=== PATIENT | male | born 1985 | race Caucasian/White ===

== ENCOUNTER 2018-08-10 15:14 | Emergency (ER) | payer BC, SELFPAY ==
[2018-08-10 17:18] LABS: Absolute Lymphocytes (CBC) 3.3 K/uL (0.7-4.9); Absolute Monocytes 0.4 K/uL (0.1-1.3); Basophils % 1.1 % (0-1.3); Eosinophils % 0.3 % (0-4.4); Hematocrit 38.7 % (39.6-49.0); Lymphocytes % 57.2 % (15.3-44.8); Monocytes % 7.1 % (3.3-12.3); RBC Red Blood Cell Count 4.71 M/uL (4.33-5.43)
--- NOTE | 2018-08-10 17:20 | RAD REPORT ---
EXAM DESCRIPTION: CT - Head Brain Wo Cont - 08/10/2018 5:10 pm CLINICAL HISTORY: PAIN Headache COMPARISON: No comparisons TECHNIQUE: All CT scans are performed using dose optimization technique as appropriate and may inclu de automated exposure control or mA/KV adjustment according to patient size. FINDINGS: No intracranial hemorrhage, hydrocephalus or extra-axial fluid collection.No areas of brai n edema or evidence of midline shift. The paranasal sinuses and mastoids are clear. The calvarium is intact. IMPRESSION: No acute intracranial abnormality.
[2018-08-10 17:37] LABS: ALT/SGPT 42 U/L (12-78); AST/SGOT 32 U/L (15-37); Albumin 3.5 g/dL (3.4-5.0); Alkaline Phosphatase 74 U/L (45-117); BUN Blood Urea Nitrogen 13 mg/dL (7-18); Bicarbonate 32 mmol/L (21-32); Bilirubin Direct 0.3 mg/dL (0-0.2); Bilirubin Total 1.2 mg/dL (0.2-1.0); Glucose Level 124 mg/dL (74-106); Lipase 160 U/L (73-393); Protein, Total 7.4 g/dL (6.4-8.2); Sodium Level 139 mmol/L (136-145)
--- NOTE | 2018-08-10 17:49 | EDPHYS ---
Physician Documentation [facility] Name: Patricia Watkins Age: 32 yrs Sex: Male : 1985 Arrival Date: 08/10/2018 Time: 15:15 Bed 10 Private MD: Coreen Toro C ED Physician nAeesh Lima HPI: 08/10 17:03 This 32 yrs old Male presents to ER via Ambulatory with complaints of Doctor ma2 Referral. 17:03 The patient reports fever, not measured (subjective). Onset: The symptoms/episode ma2 began/occurred gradually, 3 week(s) ago. Associated signs and symptoms: Pertinent positives: HEADACHE, Pertinent negatives: abdominal pain, arthralgias, chest pain, cough, hemoptysis, nausea, sinus drainage. Severity of symptoms: At their worst the symptoms were mild in the emergency department the symptoms are unchanged. The patient has not experienced similar symptoms in the past. Historical: - Allergies: 15:43 No Known Allergies; hb - Home Meds: 15:43 Ramipril Oral [Active]; hb - PMHx: 15:43 Hypertension; hb - PSHx: 15:43 None; hb - Immunization history:: Adult Immunizations up to date. - Social history:: Smoking status: Patient/guardian denies using tobacco, Patient/guardian denies using alcohol, street drugs, The patient lives with family. - Ebola Screening: : No symptoms or risks identified at this time. - Family history:: not pertinent. ROS: 17:03 Constitutional: Negative for fever, chills, and weight loss, Neck: Negative for injury, ma2 pain, and swelling, Cardiovascular: Negative for chest pain, palpitations, and edema, Respiratory: Negative for shortness of breath, cough, wheezing, and pleuritic chest pain, Abdomen/GI: Negative for abdominal pain, nausea, diarrhea, and constipation. 17:03 Constitutional: Positive for chills, Negative for malaise, poor PO intake. 17:03 Neuro: Positive for headache, Negative for dizziness, gait disturbance, numbness, speech changes, tremor, weakness. 17:03 All other systems are negative. Exam: 17:03 Constitutional: This is a well developed, well nourished patient who is awake, alert, ma2 and in no acute distress. Eyes: Pupils equal round and reactive to light, extra-ocular motions intact. Lids and lashes normal. Conjunctiva and sclera are non-icteric and not injected. Cornea within normal limits. Periorbital areas with no swelling, redness, or edema. ENT: Nares patent. No nasal discharge, no septal abnormalities noted. Tympanic membranes are normal and external auditory canals are clear. Oropharynx with no redness, swelling, or masses, exudates, or evidence of obstruction, uvula midline. Mucous membranes moist. Chest/axilla: Normal chest wall appearance and motion. Nontender with no deformity. No lesions are appreciated. Cardiovascular: Regular rate and rhythm with a normal S1 and S2. No gallops, murmurs, or rubs. Normal PMI, no JVD. No pulse deficits. Respiratory: Lungs have equal breath sounds bilaterally, clear to auscultation and percussion. No rales, rhonchi or wheezes noted. No increased work of breathing, no retractions or nasal flaring. Abdomen/GI: Soft, non-tender, with normal bowel sounds. No distension or tympany. No guarding or rebound. No evidence of tenderness throughout. MS/ Extremity: Pulses equal, no cyanosis. Neurovascular intact. Full, normal range of motion. Neuro: Awake and alert, GCS 15, oriented to person, place, time, and situation. Cranial nerves II-XII grossly intact. Motor strength 5/5 in all extremities. Sensory grossly intact. Cerebellar exam normal. Normal gait. Vital Signs: 15:42 BP 138 / 101; Pulse 90; Resp 18; Temp 98.8; Pulse Ox 100% on R/A; Pain 0/10; hb 16:45 BP 125 / 84; Pulse 88; Resp 18; Pulse Ox 97% on R/A; aj1 18:45 BP 127 / 88; Pulse 82; Resp 18; Pulse Ox 99% ; aj1 19:45 BP 125 / 72; Pulse 88; Resp 18; Pulse Ox 99% on R/A; aj1 20:33 BP 127 / 77; Pulse 89; Resp 18; Pulse Ox 99% on R/A; aj1 MDM: 16:40 Patient medically screened. ma2 17:03 Differential diagnosis: bacterial infection, URI, bronchitis, pneumonia UTI, ma2 gastroenteritis. 17:42 Data reviewed: vital signs, nurses notes. Counseling: I had a detailed discussion with ma2 the patient and/or guardian regarding: the historical points, exam findings, and any diagnostic results supporting the discharge/admit diagnosis, the presence of at least one elevated blood pressure reading (>120/80) during this emergency department visit, lab results, the need for outpatient follow up. 08/10 16:56 Order name: Basic Metabolic Panel; Complete Time: 17:42 [facility] 08/10 16:56 Order name: CBC with Diff [facility] 08/10 16:56 Order name: Creatinine for Radiology; Complete Time: 17:42 [facility] 08/10 16:56 Order name: Hepatic Function; Complete Time: 17:42 [facility] 08/10 16:56 Order name: Lipase; Complete Time: 17:42 [facility] 08/10 16:56 Order name: Blood Culture Adult (2) [facility] 08/10 16:56 Order name: CT Head Brain wo Cont; Complete Time: 17:42 [facility] 08/10 16:56 Order name: IV Saline Lock; Complete Time: 17:13 [facility] 08/10 16:56 Order name: Labs collected and sent; Complete Time: 17:13 [facility] 08/10 17:05 Order name: Chest Single View XRAY; Complete Time: 18:19 [facility] 08/10 17:37 Order name: Manual Differential [facility] 08/10 18:49 Order name: TSH [facility] 08/10 18:49 Order name: Hemoglobin A1c [facility] 08/10 18:49 Order name: XRAY Facial Bones <3 Views: sinuses; Complete Time: 20:00 ma2 Administered Medications: No medications were administered Disposition: 08/10/18 20:01 Discharged to Home. Impression: Chills (without fever). - Condition is Stable. - Discharge Instructions: Fever, Adult, [id number]. - Medication Reconciliation Form, Thank You Letter, Antibiotic Education, Prescription Opioid Use form. - Follow up: Private Physician; When: Tomorrow; Reason: Continuance of care. Follow up: Coreen Toro MD; When: Tomorrow; Reason: Continuance of care. Signatures: Dispatcher [employer] EDNE Hui Hinojosa RN RN aj1 Maryann Frausto RN RN Aneesh Lima MD MD ma2 Corrections: (The following items were deleted from the chart) 17:51 17:48 08/10/2018 17:48 Discharged to Home. Impression: Fever of other and unknown ma2 origin. Condition is Stable. Forms are Medication Reconciliation Form, Thank You Letter, Antibiotic Education, Prescription Opioid Use. Follow up: Private Physician; When: Tomorrow; Reason: Continuance of care. ma2 18:51 18:19 08/10/2018 18:19 Discharged to Home. Impression: Chills (without fever). ma2 Condition is Stable. Forms are Medication Reconciliation Form, Thank You Letter, Antibiotic Education, Prescription Opioid Use. Follow up: Private Physician; When: Tomorrow; Reason: Continuance of care. ma2 20:34 20:01 08/10/2018 20:01 Discharged to Home. Impression: Chills (without fever). aj1 Condition is Stable. Forms are Medication Reconciliation Form, Thank You Letter, Antibiotic Education, Prescription Opioid Use. Follow up: Private Physician; When: Tomorrow; Reason: Continuance of care. Follow up: Coreen Toro; When: Tomorrow; Reason: Continuance of care. ma2
--- NOTE | 2018-08-10 17:49 | ER ---
Nurse's Notes [facility] Name: Patricia Watkins Age: 32 yrs Sex: Male : 1985 Arrival Date: 08/10/2018 Time: 15:15 Bed 10 Private MD: Coreen Toro C Diagnosis: Chills (without fever) Presentation: 08/10 15:41 Presenting complaint: Headache, chills, fever, and decreased appetite x 2 weeks. TMAX hb 100.8. Transition of care: patient was not received from another setting of care. Onset of symptoms is unknown. Risk Assessment: Do you want to hurt yourself or someone else? Patient reports no desire to harm self or others. Care prior to arrival: None. 15:41 Method Of Arrival: Ambulatory hb 15:41 Acuity: JORY 3 hb 20:34 Initial Sepsis Screen: Does the patient meet any 2 criteria? No. Patient's initial aj1 sepsis screen is negative. Does the patient have a suspected source of infection? No. Patient's initial sepsis screen is negative. Historical: - Allergies: 15:43 No Known Allergies; hb - Home Meds: 15:43 Ramipril Oral [Active]; hb - PMHx: 15:43 Hypertension; hb - PSHx: 15:43 None; hb - Immunization history:: Adult Immunizations up to date. - Social history:: Smoking status: Patient/guardian denies using tobacco, Patient/guardian denies using alcohol, street drugs, The patient lives with family. - Ebola Screening: : No symptoms or risks identified at this time. - Family history:: not pertinent. Screenin:55 Abuse screen: Denies threats or abuse. Denies injuries from another. Nutritional aj1 screening: No deficits noted. Tuberculosis screening: No symptoms or risk factors identified. 20:34 Fall Risk None identified. aj1 Assessment: 16:55 General: Appears in no apparent distress. comfortable, Behavior is calm, cooperative, aj1 appropriate for age. Pain: Complains of pain in forehead Reports that pain wraps around his head like a band. Neuro: Level of Consciousness is awake, alert, obeys commands, Oriented to person, place, time, situation. Cardiovascular: Patient's skin is warm and dry. Respiratory: Airway is patent Respiratory effort is even, unlabored, Respiratory pattern is regular, symmetrical. GI: Reports poor appetite. : No signs and/or symptoms were reported regarding the genitourinary system. EENT: No signs and/or symptoms were reported regarding the EENT system. Derm: No signs and/or symptoms reported regarding the dermatologic system. Skin is pink, warm \T\ dry. normal. Musculoskeletal: No signs and/or symptoms reported regarding the musculoskeletal system. Circulation, motion, and sensation intact. 17:51 Reassessment: Patient discharge pending chest X-Ray results. aj 17:52 Reassessment: Patient appears in no apparent distress at this time. No changes from aj1 previously documented assessment. Patient and/or family updated on plan of care and expected duration. Pain level reassessed. Patient is alert, oriented x 3, equal unlabored respirations, skin warm/dry/pink. 18:45 Reassessment: Patient appears in no apparent distress at this time. No changes from aj1 previously documented assessment. Patient and/or family updated on plan of care and expected duration. Pain level reassessed. Patient is alert, oriented x 3, equal unlabored respirations, skin warm/dry/pink. 19:44 Reassessment: Patient appears in no apparent distress at this time. No changes from aj1 previously documented assessment. Patient and/or family updated on plan of care and expected duration. Pain level reassessed. Patient is alert, oriented x 3, equal unlabored respirations, skin warm/dry/pink. 20:33 Reassessment: Patient appears in no apparent distress at this time. No changes from aj1 previously documented assessment. Patient and/or family updated on plan of care and expected duration. Pain level reassessed. Patient is alert, oriented x 3, equal unlabored respirations, skin warm/dry/pink. Vital Signs: 15:42 BP 138 / 101; Pulse 90; Resp 18; Temp 98.8; Pulse Ox 100% on R/A; Pain 0/10; hb 16:45 BP 125 / 84; Pulse 88; Resp 18; Pulse Ox 97% on R/A; aj1 18:45 BP 127 / 88; Pulse 82; Resp 18; Pulse Ox 99% ; aj1 19:45 BP 125 / 72; Pulse 88; Resp 18; Pulse Ox 99% on R/A; aj1 20:33 BP 127 / 77; Pulse 89; Resp 18; Pulse Ox 99% on R/A; aj1 ED Course: 15:15 Patient arrived in ED. as 15:16 Coreen Toro MD is Private Physician. as 15:42 Triage completed. hb 15:43 Arm band placed on right wrist. hb 16:40 Aneesh Lima MD is Attending Physician. ma2 16:42 Hui Hinojosa, RN is Primary Nurse. aj1 16:55 Patient has correct armband on for positive identification. aj1 16:55 No provider procedures requiring assistance completed. aj1 17:05 Inserted saline lock: 18 gauge in right antecubital area, using aseptic technique. aj1 Blood collected. 17:05 Initial lab(s) drawn, by me, sent to lab. First set of blood cultures drawn by me. aj1 17:12 CT Head Brain wo Cont In Process Unspecified. EDMS 18:10 Chest Single View XRAY In Process Unspecified. EDMS 19:42 XRAY Facial Bones <3 Views: sinuses In Process Unspecified. EDMS 20:00 Coreen Toro MD is Referral Physician. ma2 20:33 IV discontinued, intact, bleeding controlled, No redness/swelling at site. Pressure aj1 dressing applied. Administered Medications: No medications were administered Outcome: 17:48 Discharge ordered by . ma2 18:19 Discharge ordered by . ma2 20:01 Discharge ordered by . ma2 20:34 Discharged to home ambulatory. aj1 20:34 Condition: good 20:34 Discharge instructions given to patient, Instructed on discharge instructions, follow up and referral plans. Demonstrated understanding of instructions, follow-up care. 20:34 Patient left the ED. aj1 Signatures: Dispatcher [employer] EDAZ Hui Hinojosa, RN RN aj1 Katya Barney Heather, CIARA RN Aneesh Lima MD MD ma2
--- NOTE | 2018-08-10 18:18 | RAD REPORT ---
EXAM DESCRIPTION: RAD - Chest Single View - 08/10/2018 6:10 pm CLINICAL HISTORY: chills Chest pain. COMPARISON: <Comparisons> FINDINGS: Portable technique limits examination quality. The lungs are grossly clear. The heart is normal in size. No displaced fractures. IMPRESSION: No acute intrathoracic process suspected.
--- NOTE | 2018-08-10 19:52 | RAD REPORT ---
EXAM DESCRIPTION: RAD - Facial Bones <3 Views - 08/10/2018 7:42 pm CLINICAL HISTORY: CONGESTION Fever COMPARISON: Head Brain Wo Cont dated 08/10/2018 FINDINGS: The paranasal sinuses and mastoids appear clear. No bony destructive changes are seen. Gege la turcica is normal in size.
[2018-08-10 20:56] LABS: Blood Morphology Comment NOT SEEN (NOT SEEN); Platelet Estimate ADEQ
== END 2018-08-10 20:34 | disposition home or self-care (01) ==
LOC: ER 15:14
DX: R68.83 Chills (without fever) (principal); I10 Essential (primary) hypertension
CPT/HCPCS: 36415; 70140; 70450; 71045; 80048; 80076; 83690; 84443; 85025; 87040; 99284